=== PATIENT | female | born 1940 | race Caucasian/White ===

== ENCOUNTER 2019-07-27 18:04 | Outpatient (CLI) | payer MEDICARE, OTHER | END 2019-07-27 18:05 | disposition critical access hospital (66) | LOC: EMS 18:04 | PROVIDERS: ATTEND Surgery | DX: R51 Headache (principal); M54.2 Cervicalgia; M79.632 Pain in left forearm; M25.571 Pain in right ankle and joints of right foot; W18.31XA Fall on same level due to stepping on an object, initial encounter; Y92.009 Unspecified place in unspecified non-institutional (private) residence as the place of occurrence of the external cause | CPT/HCPCS: A0425; A0429 ==

== ENCOUNTER 2019-07-27 18:17 | Emergency (ER) | payer MEDICARE, OTHER ==
--- NOTE | 2019-07-27 18:39 | ED Physician Documentation ---
History of Present Illness - Stated complaint Stated Complaint: GLF, RT ANKLE PAIN, LT FACIAL/FOREARM PAIN - Chief complaint Chief Complaint: General - History obtained from History obtained from: Patient, EMS - History of Present Illness Timing: Today (She stepped in a hole and had a trip and fall forward hitting her face on the ground. She complains of a mild headache. No loss of consciousness or blood thinners. 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 : None HEENT: None Psych: None Musculoskeletal: None Derm: None - Past Surgical History Past Surgical History: No Ortho: Knee replacement - Present Medications Home Medications: Ambulatory Orders Medication Instructions Recorded Confirmed Aspirin 81 mg PO DAILY 07/27/19 07/27/19 Atorvastatin [Lipitor] 20 mg PO DAILY 07/27/19 07/27/19 Levothyroxine Sodium [Synthroid] 75 mg PO DAILY 07/27/19 07/27/19 Lisinopril [Prinivil] 5 mg PO DAILY 07/27/19 07/27/19 Lisinopril [Zestril] 5 mg PO DAILY 07/27/19 07/27/19 Metoprolol Succinate 12.5 mg PO BID 07/27/19 07/27/19 Pantoprazole [Protonix] 40 mg PO DAILY 07/27/19 07/27/19 amLODIPine [Norvasc] 2.5 mg PO DAILY 07/27/19 07/27/19 metFORMIN [Glucophage] 1,000 mg PO BIDWM 07/27/19 07/27/19 - Allergies Allergies/Adverse Reactions: Allergies Allergy/AdvReac Type Severity Reaction Status Date / Time No Known Drug Allergies Allergy Verified 07/27/19 18:22 - Social History Does the pt smoke?: No Smoking Status: Never smoker Does the pt drink ETOH?: No Does the pt have substance abuse?: No - Immunizations Immunizations are current?: Yes - POLST Patient has POLST: No PD ED PE NORMAL - Vitals Vital signs reviewed: Yes - General General: Alert and oriented X 3, No acute distress - HEENT HEENT: PERRL, EOMI, Other (There is a small abrasion inferior and lateral to the left eye, no facial bony tenderness) - Neck Neck: No bony TTP (But c-collar was maintained pending imaging given advanced age) - Respiratory Respiratory: Clear bilaterally - Abdomen Abdomen: Non tender - Back Back: No spinal TTP - Derm Derm: Normal color, Warm and dry - Extremities Extremities: No deformity, No tenderness to palpate, Normal ROM s pain, No edema, No calf tenderness / cord - Neuro Neuro: Alert and oriented X 3, Normal speech Results - Vitals Vitals: Vital Signs - 24 hr 07/27/19 07/27/19 18:23 19:36 Temperature 36.9 C 36.8 C Heart Rate 76 74 Respiratory 17 18 Rate Blood Pressure 152/69 H 157/69 H O2 Saturation 97 97 Oxygen O2 Source Room air - Labs Labs: Laboratory Tests 07/27/19 07/27/19 07/27/19 19:06 19:06 19:06 WBC 8.5 RBC 4.20 Hgb 11.8 L Hct 37.6 MCV 89.5 MCH 28.1 MCHC 31.4 L RDW 12.4 Plt Count 338 MPV 10.5 Neut # (Auto) 5.4 Lymph # (Auto) 2.1 [place] # (Auto) 0.6 Eos # (Auto) 0.4 Baso # (Auto) 0.1 Absolute Nucleated RBC 0.00 Nucleated RBC % 0.0 PT 10.6 INR 0.9 Sodium 137 Potassium 4.3 Chloride 100 L Carbon Dioxide 26 Anion Gap 11.0 BUN 24 H Creatinine 1.2 H Estimated GFR (MDRD) 43 L Glucose 187 H Calcium 9.5 Total Bilirubin 0.7 AST 21 ALT 18 Alkaline Phosphatase 37 L Total Protein 6.5 L Albumin 4.1 Globulin 2.4 Albumin/Globulin Ratio 1.7 Lipase 65 H Ethyl Alcohol < 5.0 - Rads (name of study) ct head Radiology: EMP read contemporaneously (Right sided holohemispheric subdural hematoma up to 1.3 cm, large meningioma, leftward midline shift of 8 mm) CT Cspine Radiology: EMP read contemporaneously (negative) PD MEDICAL DECISION MAKING - ED course ED course: 79-year-old woman with a ground-level fall, mechanical, little scrape under the left eye, neuro intact. Started vomiting after CT and I viewed the CTs immediately on return, she is got a large right-sided subdural, also large meningioma I think. [facility] was called and she was accepted by Dr. Manisha Porras to a higher level care at 7:20 PM and cobras were completed. Departure - Departure Disposition: 02 Transfer Acute Care Hosp Clinical Impression: Subdural hematoma, Fall from ground level Condition: Serious Discharge Date/Time: 07/27/19 19:52
[2019-07-27] MEDS ORDERED: ONDANSETRON 4 MG/2 ML VIAL IVP STA (19:06)
[2019-07-27 19:11] LABS: BASOPHILS # (AUTO) 0.1 10^3/uL (0.0-0.1); BASOPHILS % (AUTO) 0.8 %; EOSINOPHILS # (AUTO) 0.4 10^3/uL (0.0-0.7); EOSINOPHILS % (AUTO) 4.1 %; HGB - HEMOGLOBIN 11.8 g/dL (12.0-16.0); LYMPHOCYTES # (AUTO) 2.1 10^3/uL (1.5-3.5); LYMPHOCYTES % (AUTO) 24.6 %; MEAN CORPUSCULAR HEMOGLOBIN 28.1 pg (27.0-31.0); MEAN CORPUSCULAR HGB CONC 31.4 g/dL (32.0-36.0); MEAN CORPUSCULAR VOLUME 89.5 fL (81.0-99.0); MEAN PLATELET VOLUME 10.5 fL (7.9-10.8); MONOCYTES # (AUTO) 0.6 10^3/uL (0.0-1.0); MONOCYTES % (AUTO) 6.6 %; NEUTROPHILS # (AUTO) 5.4 10^3/uL (1.5-6.6); NEUTROPHILS % (AUTO) 63.5 %; PLT - PLATELET COUNT 338 10^3/uL (130-450); RED CELL DISTRIBUTION WIDTH 12.4 % (12.0-15.0); WHITE BLOOD COUNT 8.5 x10^3/uL (4.8-10.8)
[2019-07-27 19:15] LABS: INR 0.9 (0.8-1.2); PT - PROTHROMBIN TIME 10.6 secs (9.9-12.6)
[2019-07-27 19:23] LABS: ALBUMIN 4.1 g/dL (3.2-5.5); ALBUMIN/GLOBULIN RATIO 1.7 (1.0-2.2); ALKALINE PHOSPHATASE 37 IU/L (42-121); ALT ALANINE AMINOTRANSFERASE 18 IU/L (10-60); AST ASPARTATE AMINOTRANSFERASE 21 IU/L (10-42); BILIRUBIN,TOTAL 0.7 mg/dL (0.2-1.0); BUN - BLOOD UREA NITROGEN 24 mg/dL (6-20); CALCIUM 9.5 mg/dL (8.5-10.3); CARBON DIOXIDE - CO2 26 mmol/L (21-32); CHLORIDE 100 mmol/L (101-111); CREATININE 1.2 mg/dL (0.4-1.0); GFR - MDRD 43 (>89); GLUCOSE 187 mg/dL (70-100); LIPASE 65 U/L (22-51); SODIUM 137 mmol/L (135-145); TOTAL PROTEIN 6.5 g/dL (6.7-8.2)
--- NOTE | 2019-07-27 19:31 | CT Report ---
Reason: head inj Procedure Date: 07/27/2019 Accession Number: [id number] / [id number] Procedure: CT - CERVICAL SPINE WO CPT Code: Final Report FULL RESULT: EXAM: CT CERVICAL SPINE WITHOUT CONTRAST DATE: 07/27/2019 06:53 PM. HISTORY: Head inj. COMPARISONS: None. TECHNIQUE: Thin-section axial images were acquired of the cervical spine without contrast. Post-processing: Coronal and sagittal reformats. Other: None. In accordance with CT protocol optimization, one or more of the following dose reduction techniques were utilized for this exam: automated exposure control, adjustment of mA and/or KV based on patient size, or use of iterative reconstructive technique. FINDINGS: Alignment: No scoliosis or spondylolisthesis. Bones: No fracture or bone lesion. Musculature: Normal. No fatty atrophy. Other: The paravertebral and prevertebral soft tissues are unremarkable. The lung apices are clear. IMPRESSION: No acute displaced fracture or malalignment. [facility]
--- NOTE | 2019-07-27 19:33 | CT Report ---
Reason: head inj Procedure Date: 07/27/2019 Accession Number: [id number] / [id number] Procedure: CT - HEAD WO CPT Code: Addended Final Report FULL RESULT: EXAM: CT HEAD EXAM DATE: 07/27/2019 06:53 PM. CLINICAL HISTORY: Head inj. COMPARISON: CERVICAL SPINE W/O 07/27/2019 6:53 PM. TECHNIQUE: Multiaxial CT images were obtained from the foramen magnum to the vertex. Reformats: Sagittal and coronal. IV contrast: None. In accordance with CT protocol optimization, one or more of the following dose reduction techniques were utilized for this exam: automated exposure control, adjustment of mA and/or KV based on patient size, or use of iterative reconstructive technique. FINDINGS: Parenchyma: No evidence of parenchymal hemorrhage. There is right-sided mass-effect with leftward midline shift of approximately 0.8 cm at the level of the third ventricle. Extraaxial Spaces: There is right-sided holohemispheric subdural hematoma measuring up to 1.3 cm in thickness. There is a large calcified extra-axial mass along the right falx. This likely represents a meningioma. Ventricles: There is effacement of the right lateral ventricle. There is no evidence of ventricular entrapment. Basilar cisterns are patent. Sinuses and Orbits: No evidence of depressed skull fracture. Bones: No evidence of fracture or calvarial defect. Other: None. IMPRESSION: 1. Right-sided holohemispheric subdural hematoma measuring up to 1.3 cm in thickness. There is associated mass-effect with approximately 0.8 cm of leftward midline shift. There is partial effacement of the right lateral ventricle. Basilar cisterns are patent. 2. There is a calcified extra-axial mass measuring 3.1 x 2.8 cm along the right aspect of the falx. This may represent a meningioma. 3. No evidence of depressed skull fracture. [facility] ADDENDUM: 07/27/19 19:52 The above call report findings were discussed with Adrian Loya by Dr. Lisandro Reid at 07:02 PM on 07/27/2019.
[2019-07-27 19:37] VITALS: BP 157/69
== END 2019-07-27 19:52 | disposition short-term general hospital (02) ==
LOC: EDUNIT# → ED 18:17
DX: S06.5X0A Traumatic subdural hemorrhage without loss of consciousness, initial encounter (principal); S00.81XA Abrasion of other part of head, initial encounter; M25.571 Pain in right ankle and joints of right foot; M79.632 Pain in left forearm; W01.198A Fall on same level from slipping, tripping and stumbling with subsequent striking against other object, initial encounter; Y93.01 Activity, walking, marching and hiking; I10 Essential (primary) hypertension; E11.9 Type 2 diabetes mellitus without complications; Z79.84 Long term (current) use of oral hypoglycemic drugs; Z79.82 Long term (current) use of aspirin
CPT/HCPCS: 36415; 70450; 72125; 80053; 80320; 83690; 85025; 85610; 96374; 99284

== ENCOUNTER 2019-08-02 13:17 | Outpatient (CLI) | payer MEDICARE, OTHER | END 2019-08-02 13:18 | disposition critical access hospital (66) | LOC: EMS 13:17 | PROVIDERS: ATTEND Surgery | DX: R46.4 Slowness and poor responsiveness (principal); R53.1 Weakness; R29.810 Facial weakness; R47.81 Slurred speech | CPT/HCPCS: A0425; A0427 ==

== ENCOUNTER 2019-08-02 13:39 | Inpatient (IN) | payer MEDICARE, OTHER ==
--- NOTE | 2019-08-02 13:43 | ED Physician Documentation ---
PD HPI FOCAL NEURO - Stated complaint Stated Complaint: POSS STROKE - History obtained from History obtained from: EMS (This is an 79-year-old woman who I saw on [place], she had fallen and suffered a right sided subdural hemorrhage. She was transferred to [facility] where she had a craniectomy, intraoperatively the skull flap was replaced. She was doing well postop and released 2 days ago. Reportedly about 1245 today she became suddenly flaccid on the left side and nonverbal. The patient is pretty much nonverbal, she can kind of say yes or no. 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 : None HEENT: None Psych: None Musculoskeletal: None Derm: None - Past Surgical History Past Surgical History: No Ortho: Knee replacement - Present Medications Home Medications: Ambulatory Orders Medication Instructions Recorded Confirmed Aspirin 81 mg PO DAILY 07/27/19 07/27/19 Atorvastatin [Lipitor] 20 mg PO DAILY 07/27/19 07/27/19 Levothyroxine Sodium [Synthroid] 75 mg PO DAILY 07/27/19 07/27/19 Lisinopril [Prinivil] 5 mg PO DAILY 07/27/19 07/27/19 Lisinopril [Zestril] 5 mg PO DAILY 07/27/19 07/27/19 Metoprolol Succinate 12.5 mg PO BID 07/27/19 07/27/19 Pantoprazole [Protonix] 40 mg PO DAILY 07/27/19 07/27/19 amLODIPine [Norvasc] 2.5 mg PO DAILY 07/27/19 07/27/19 metFORMIN [Glucophage] 1,000 mg PO BIDWM 07/27/19 07/27/19 - Allergies Allergies/Adverse Reactions: Allergies Allergy/AdvReac Type Severity Reaction Status Date / Time No Known Drug Allergies Allergy Verified 08/02/19 14:08 - Social History Does the pt smoke?: No Smoking Status: Never smoker Does the pt drink ETOH?: No Does the pt have substance abuse?: No - Immunizations Immunizations are current?: Yes - POLST Patient has POLST: No PD ED PE NORMAL - Vitals Vital signs reviewed: Yes - General General: Other (He is alert and makes eye contact, she is pretty much nonverbal except for the occasional yes or shaking her head for no. She follows commands but is flaccid on the left side.) - HEENT HEENT: PERRL, Other (Right gaze preference, can look only a little bit to the left past midline; Significant left facial droop) - Neck Neck: Supple, no meningeal sign, No bony TTP - Cardiac Cardiac: RRR, No murmur - Respiratory Respiratory: No respiratory distress, Clear bilaterally - Abdomen Abdomen: Soft, Non tender - Back Back: No CVA TTP, No spinal TTP - Derm Derm: Normal color, Warm and dry - Neuro Neuro: Other (She is completely flaccid on the left side, although she does recognize the left hand is her only when I put it up in front of her face. She does not withdraw to painful stimulus nor does she react to painful stimulus in the left arm or leg.) NIHSS - Time Time: 13:40 - Level of Consciousness Level of consciousness: (0) Alert, Keenly responsive LOC Questions: (2) Answers neither correct LOC Commands: (0) Performs both correctly - Gaze Best Gaze: (1) Partial gaze palsy - Visual Visual: (0) No loss - Facial Palsy Facial Palsy: (3) Complete paralysis - Motor Arms (both separate) Motor Arm (right): (0) No drift Motor Arm (left): (4) No movement - Motor Legs (both separate) Motor Leg (right): (0) No drift Motor Leg (left): (4) No movement - Limb Ataxia Limb Ataxia: (0) Absent - Sensory Sensory: (2) [id number] loss - Best Language Best Language: (2) Severe aphasia - Dysarthria Dysarthria: (-) Intubated or other barrier, use comment - Extinction and Inattention (formally neg Extinction and inattention: (1) Visual,tactile,auditory,spatial, or personal inattention - Total Score/Results Total Score/Result: 19 Results - Vitals Vitals: Vital Signs - 24 hr 08/02/19 08/02/19 08/02/19 14:08 14:18 15:28 Temperature 37.0 C Heart Rate 88 104 H Respiratory 17 15 Rate Blood Pressure 165/72 H 165/70 H O2 Saturation 87 L 98 100 Oxygen O2 Source Nasal cannula Oxygen Flow Rate 2 - EKG (time done) 1413 Rate: Rate (enter#) (93) Rhythm: NSR (with PVCs) [place]: Normal Intervals: Normal VA QRS: Normal Ischemia: Normal ST segments Computer interpretation: Agree with computer - Labs Labs: Laboratory Tests 08/02/19 08/02/19 08/02/19 14:12 14:12 14:12 WBC 8.5 RBC 3.19 L Hgb 8.9 L Hct 29.1 L MCV 91.2 MCH 27.9 MCHC 30.6 L RDW 12.1 Plt Count 392 MPV 10.3 Neut # (Auto) 5.3 Lymph # (Auto) 2.0 [place] # (Auto) 0.7 Eos # (Auto) 0.4 Baso # (Auto) 0.0 Absolute Nucleated RBC 0.00 Nucleated RBC % 0.0 PT 11.5 INR 1.0 APTT 26.5 Sodium 132 L Potassium 3.8 Chloride 98 L Carbon Dioxide 20 L Anion Gap 14.0 H BUN 19 Creatinine 1.0 Estimated GFR (MDRD) 53 L Glucose 228 H Calcium 9.1 Total Bilirubin 0.6 AST 18 ALT 20 Alkaline Phosphatase 53 Total Protein 6.5 L Albumin 3.6 Globulin 2.9 Albumin/Globulin Ratio 1.2 Lipase 33 PD MEDICAL DECISION MAKING - ED course ED course: 79yo F with left hemiplegia 6 days after having a large right-sided subdural hematoma. She had a craniectomy, and her skull was replaced. She was taken immediately over to CT after my initial evaluation, which actually did not look too bad to my eye i.e. there was not much in the way of fresh blood products or acute-looking disease in there. We added on angiography to see if it might be an embolic phenomenon. Clearly she is not a TPA candidate just 6 days after a subdural hemorrhage. Of note reportedly this was preceded by some sort of seizure activity so it may be a Vicente's paralysis 2. On recheck at about 2:10 PM the family was in the room. She was now actually talking just a little bit. She was retching into a bag and I offered nausea medicine to which she replied thank you. Also reportedly was moving the left hand a little bit now. I spoke with Dr. Lewis Meza, stroke neurologist at [facility] ([phone]), she will call me back after reviewing the images primarily but agrees that this is likely a Vicente's paralysis and recommends loading her with 2 g of levetiracetam pending her review of the images. I spoke with her again at 1533 after she looked at the images. Subdural is unchanged from post-op CT. Continue levitiracetam at 750mg PO BID for now. Departure - Departure Disposition: ED Place in Observation Clinical Impression: Vicente's paralysis (postepileptic) Condition: Fair
--- NOTE | 2019-08-02 13:59 | CT Report ---
Reason: L side flaccid Procedure Date: 08/02/2019 Accession Number: [id number] / [id number] Procedure: CT - Head W/O Stroke Protocol CPT Code: Addended Final Report FULL RESULT: EXAM: CT HEAD EXAM DATE: 08/02/2019 01:48 PM. CLINICAL HISTORY: 79-year-old female. L side flaccid. COMPARISON: CT head 07/27/2019 TECHNIQUE: Multiaxial CT images were obtained from the foramen magnum to the vertex. Reformats: Sagittal and coronal. IV contrast: None. In accordance with CT protocol optimization, one or more of the following dose reduction techniques were utilized for this exam: automated exposure control, adjustment of mA and/or KV based on patient size, or use of iterative reconstructive technique. FINDINGS: Compared to prior study dated 07/27/2019, the patient is status post right frontal craniotomy for evacuation of the previously seen right holohemispheric subdural hemorrhage, with 9 mm thick layer of acute blood underlying the craniotomy site in the right frontal region still remaining (series 7 image 21), previously the maximal thickness was 13 mm. There has been interval decrease in intracranial mass-effect, the leftward midline shift has decreased from 11 mm to 5 mm. Slight interval improvement in size and configuration of the supratentorial ventricles. No evidence of hydrocephalus or trapping. Stable large calcified extra-axial mass along the right aspect of the falx, presumed meningioma. No CT evidence of interval increase in intracranial hemorrhage. No CT evidence of interval development of acute infarct. The visualized orbits are unremarkable. The paranasal sinuses and mastoid air cells are clear. IMPRESSION: 1. Compared to prior study dated 07/27/2019, the patient is status post right frontal craniotomy for evacuation of the previously seen right holohemispheric subdural hemorrhage, with 9 mm thick layer of acute extra-axial blood underlying the craniotomy site in the right frontal region still remaining (series 7 image 21), previously the maximal thickness was 13 mm. 2. There has been interval decrease in intracranial mass-effect, the leftward midline shift has decreased from 11 mm to 5 mm. 3. Slight interval improvement in size and configuration of the supratentorial ventricles. No evidence of hydrocephalus or trapping. 4. Stable large calcified extra-axial mass along the right aspect of the falx, presumed meningioma. 5. No CT evidence of interval increase in intracranial hemorrhage. No CT evidence of interval development of acute infarct. [facility] The critical test notification system was initiated by Dr. Jefferson Bowen at 01:56 PM on 08/02/2019. ADDENDUM: 08/02/19 14:01 The above critical test findings were discussed with Adrian Loya by Dr. Jefferson Bowen at 02:01 PM on 08/02/2019.
[2019-08-02] MEDS ORDERED: IOVERSOL 320 100 ML VIAL IVP ONE (14:07)
[2019-08-02] MEDS ORDERED: ONDANSETRON 4 MG/2 ML VIAL IVP STA (14:16)
[2019-08-02 14:18] LABS: BASOPHILS % (AUTO) 0.5 %; EOSINOPHILS # (AUTO) 0.4 10^3/uL (0.0-0.7); EOSINOPHILS % (AUTO) 4.4 %; HGB - HEMOGLOBIN 8.9 g/dL (12.0-16.0); LYMPHOCYTES % (AUTO) 24.1 %; MEAN CORPUSCULAR HEMOGLOBIN 27.9 pg (27.0-31.0); MEAN CORPUSCULAR HGB CONC 30.6 g/dL (32.0-36.0); MEAN CORPUSCULAR VOLUME 91.2 fL (81.0-99.0); MEAN PLATELET VOLUME 10.3 fL (7.9-10.8); MONOCYTES # (AUTO) 0.7 10^3/uL (0.0-1.0); MONOCYTES % (AUTO) 7.9 %; NEUTROPHILS # (AUTO) 5.3 10^3/uL (1.5-6.6); NEUTROPHILS % (AUTO) 62.7 %; PLT - PLATELET COUNT 392 10^3/uL (130-450); RED BLOOD COUNT 3.19 10^6/uL (4.20-5.40); RED CELL DISTRIBUTION WIDTH 12.1 % (12.0-15.0); WHITE BLOOD COUNT 8.5 x10^3/uL (4.8-10.8)
[2019-08-02 14:32] LABS: PT - PROTHROMBIN TIME 11.5 secs (9.9-12.6)
[2019-08-02 14:34] LABS: ALBUMIN 3.6 g/dL (3.2-5.5); ALBUMIN/GLOBULIN RATIO 1.2 (1.0-2.2); BILIRUBIN,TOTAL 0.6 mg/dL (0.2-1.0); CALCIUM 9.1 mg/dL (8.5-10.3); TOTAL PROTEIN 6.5 g/dL (6.7-8.2)
--- NOTE | 2019-08-02 14:35 | CT Report ---
Reason: L sided facial droop Procedure Date: 08/02/2019 Accession Number: [id number] / [id number] Procedure: CT - ANGIO HEAD W/WO CPT Code: Final Report FULL RESULT: EXAM: CT ANGIOGRAM HEAD AND NECK. CT SCAN HEAD WITH CONTRAST. EXAM DATE: 08/02/2019 01:58 PM. CLINICAL HISTORY: 79-year-old female. L sided facial droop. COMPARISON: Noncontrast CT head performed concurrently TECHNIQUE: Routine axial helical CTA imaging was performed from the aortic arch through the [place] of [place]. Routine axial CT imaging of the head was performed following contrast administration. Reconstructions: Routine multiplanar 3D MIP reconstructions. IV contrast: AP ML Optiray 320. NASCET Criteria are used for stenosis measurements. In accordance with CT protocol optimization, one or more of the following dose reduction techniques were utilized for this exam: automated exposure control, adjustment of mA and/or KV based on patient size, or use of iterative reconstructive technique. FINDINGS: CT SCAN HEAD: Noncontrast CT head dictated separately. No abnormal parenchymal enhancement on the postcontrast CT head. CT ANGIOGRAM EXTRACRANIAL CIRCULATION: The visualized arch is unremarkable. Great vessels are patent and unremarkable. Right Carotid: The common carotid, internal carotid, and external carotid arteries are widely patent. No dissection, significant atherosclerotic plaque, or calcification identified. Left Carotid: The common carotid, internal carotid, and external carotid arteries are widely patent. No dissection, significant atherosclerotic plaque, or calcification identified. Vertebrals: The vertebrobasilar system shows no stenosis, dissection, aneurysm, or significant atherosclerotic disease. CT ANGIOGRAM INTRACRANIAL CIRCULATION: RIGHT: Internal Carotid artery: No evidence of dissection. No evidence of aneurysm along the intracranial ICA. Anterior Cerebral Artery: Patent without significant stenosis, aneurysm, or vascular malformation. Middle Cerebral Artery: Patent without significant stenosis, aneurysm, or vascular malformation. Posterior Cerebral Artery: Nearly origin. Patent without significant stenosis, aneurysm, or vascular malformation. Posterior Communicating Artery: Patent without significant stenosis, aneurysm, or vascular malformation. LEFT: Internal Carotid artery: No evidence of dissection. No evidence of aneurysm along the intracranial ICA. Anterior Cerebral Artery: Patent without significant stenosis, aneurysm, or vascular malformation. Middle Cerebral Artery: Patent without significant stenosis, aneurysm, or vascular malformation. Posterior Cerebral Artery: Patent without significant stenosis, aneurysm, or vascular malformation. Posterior Communicating Artery: Patent without significant stenosis, aneurysm, or vascular malformation. CENTRAL: Anterior Communicating Artery: Patent. No aneurysm. The dural venous sinuses are patent. Other: The visualized lung apices are clear. The visualized osseous structures demonstrate no acute abnormality. The visualized soft tissues of the neck demonstrate no acute abnormality. IMPRESSION: CT HEAD: 1. Noncontrast CT head dictated separately. No abnormal parenchymal enhancement on the postcontrast CT head. CTA NECK: 1. No CTA evidence of hemodynamically significant stenosis, large vessel occlusion, acute dissection, aneurysm, or vascular malformation within extracranial arteries. CTA HEAD: 1. No CTA evidence of hemodynamically significant stenosis, large vessel occlusion, acute dissection, aneurysm, or vascular malformation within intracranial arteries. OTHER: 1. No other acute findings. RADIA
--- NOTE | 2019-08-02 14:35 | CT Report ---
Reason: L sided facial droop Procedure Date: 08/02/2019 Accession Number: [id number] / [id number] Procedure: CT - ANGIO NECK W CPT Code: Final Report FULL RESULT: EXAM: CT ANGIOGRAM HEAD AND NECK. CT SCAN HEAD WITH CONTRAST. EXAM DATE: 08/02/2019 01:58 PM. CLINICAL HISTORY: 79-year-old female. L sided facial droop. COMPARISON: Noncontrast CT head performed concurrently TECHNIQUE: Routine axial helical CTA imaging was performed from the aortic arch through the [place] of [place]. Routine axial CT imaging of the head was performed following contrast administration. Reconstructions: Routine multiplanar 3D MIP reconstructions. IV contrast: AP ML Optiray 320. NASCET Criteria are used for stenosis measurements. In accordance with CT protocol optimization, one or more of the following dose reduction techniques were utilized for this exam: automated exposure control, adjustment of mA and/or KV based on patient size, or use of iterative reconstructive technique. FINDINGS: CT SCAN HEAD: Noncontrast CT head dictated separately. No abnormal parenchymal enhancement on the postcontrast CT head. CT ANGIOGRAM EXTRACRANIAL CIRCULATION: The visualized arch is unremarkable. Great vessels are patent and unremarkable. Right Carotid: The common carotid, internal carotid, and external carotid arteries are widely patent. No dissection, significant atherosclerotic plaque, or calcification identified. Left Carotid: The common carotid, internal carotid, and external carotid arteries are widely patent. No dissection, significant atherosclerotic plaque, or calcification identified. Vertebrals: The vertebrobasilar system shows no stenosis, dissection, aneurysm, or significant atherosclerotic disease. CT ANGIOGRAM INTRACRANIAL CIRCULATION: RIGHT: Internal Carotid artery: No evidence of dissection. No evidence of aneurysm along the intracranial ICA. Anterior Cerebral Artery: Patent without significant stenosis, aneurysm, or vascular malformation. Middle Cerebral Artery: Patent without significant stenosis, aneurysm, or vascular malformation. Posterior Cerebral Artery: Nearly origin. Patent without significant stenosis, aneurysm, or vascular malformation. Posterior Communicating Artery: Patent without significant stenosis, aneurysm, or vascular malformation. LEFT: Internal Carotid artery: No evidence of dissection. No evidence of aneurysm along the intracranial ICA. Anterior Cerebral Artery: Patent without significant stenosis, aneurysm, or vascular malformation. Middle Cerebral Artery: Patent without significant stenosis, aneurysm, or vascular malformation. Posterior Cerebral Artery: Patent without significant stenosis, aneurysm, or vascular malformation. Posterior Communicating Artery: Patent without significant stenosis, aneurysm, or vascular malformation. CENTRAL: Anterior Communicating Artery: Patent. No aneurysm. The dural venous sinuses are patent. Other: The visualized lung apices are clear. The visualized osseous structures demonstrate no acute abnormality. The visualized soft tissues of the neck demonstrate no acute abnormality. IMPRESSION: CT HEAD: 1. Noncontrast CT head dictated separately. No abnormal parenchymal enhancement on the postcontrast CT head. CTA NECK: 1. No CTA evidence of hemodynamically significant stenosis, large vessel occlusion, acute dissection, aneurysm, or vascular malformation within extracranial arteries. CTA HEAD: 1. No CTA evidence of hemodynamically significant stenosis, large vessel occlusion, acute dissection, aneurysm, or vascular malformation within intracranial arteries. OTHER: 1. No other acute findings. [facility]IA
[2019-08-02 14:41] LABS: PARTIAL THROMBOPLASTIN TIME 26.5 secs (24.9-33.3)
[2019-08-02] MEDS ORDERED: levETIRAcetam INJ 2,000 MG in SODIUM CHLORIDE 0.9% 100ML 100 ML IV STA (15:05)
--- NOTE | 2019-08-02 15:44 | PHARMACY PROGRESS NOTE ---
- Best Possible Medication History Admit Date and Time: 08/02/19; PT STILL IN ED Processed by: Pharmacy Medication History completed: Yes Patient Interview: Pt unable to participate Secondary Source(s): Pharmacy records, Insurance records, Previous admit records As the person ultimately responsible for medication therapy, providers are able to order a medication from an existing home medication list in [facility] via the "Reconcile Routine" prior to Confirmation of that medication by landing support specialist. Such practice is discouraged except when the physician, in their clinical judgment, deems that a medical need exists for a medication without regard to previous use.
[2019-08-02] MEDS ORDERED: ACETAMINOPHEN 325 MG TABLET PO PRN (16:15)
[2019-08-02] MEDS ORDERED: ONDANSETRON 4 MG/2 ML VIAL IVP PRN (16:15)
[2019-08-02] MEDS ORDERED: SODIUM CHLORIDE FLUSH 0.9% 10 ML SYRINGE IVP PRN (16:15)
[2019-08-02 16:54] LABS: HB2 TOTAL 9.6 g/dL; HEMOGLOBIN A1C 0.55 g/dL; HEMOGLOBIN A1C % 7.4 % (4.6-6.2)
[2019-08-02] MEDS ORDERED: INSULIN ASPART 300 UNIT/3 ML PEN SUBQ SCH (17:00)
[2019-08-02] MEDS ORDERED: SODIUM CHLORIDE 0.9% 1,000 ML IV SCH (17:00)
--- NOTE | 2019-08-02 17:41 | HISTORY & PHYSICAL EXAMINATION ---
Chief Complaint - Chief Complaint Chief Complaint: focal neurological deficit History of Present Illness - History of Present Illness HPI Comment/Other: Ms. Ndiaye is an 79-year-old woman with a PMH significant for recent all which leaded to a right sided subdural hemorrhage, s/p of craniectomy, HTN, HLD, DM2 who present ER complain of suddenly flaccid on the left side and nonverbal. pt's son is at the bedside. he report pt released [facility]. she was doing well after postop,"she was almost normal" pt's son report about today lunch time she became left side weakness, and nonverbal. Upon examination, pt answer questions clearly and logically. pt's left hand can volunteer move now. but pt's left upper and lower extremity did present weakness. Pt still continue present un-volunteer and uncontrolled jerk activity. She denies headache and denies nausea now. pt's son report pt has no dysphagia. Pt had CT of head, CTA of head and neck. ER provider consulted with Dr. 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 History - Past Medical History Cardiovascular: reports: Hypertension, High cholesterol Respiratory: reports: None Neuro: reports: Head injury, Tremors Endocrine/Autoimmune: reports: Type 2 diabetes GI: reports: None MECHANIC HELPER: reports: None : reports: None HEENT: reports: None Psych: reports: None Musculoskeletal: reports: None Derm: reports: None MRSA Hx?: No - Past Surgical History Ortho: reports: Knee replacement Neuro: reports: Craniotomy - Family & Social History Family History: Mother: , Father: , Cancer Family History Comment/Other: pt's son report his grandfather from cancer, grandmother naturally. Living arrangement: At home Living Situation: With family Social History Notes: pt has remote of cigarette hx, pt has no hx of alcohol and drug issue. - POLST Patient has POLST: No Meds/Allgy - Home Medications Home Medications: Ambulatory Orders Medication Instructions Recorded Confirmed Aspirin 81 mg PO DAILY 07/27/19 08/02/19 Levothyroxine Sodium [Synthroid] 75 mcg PO QDAC 07/27/19 08/02/19 Pantoprazole [Protonix] 40 mg PO QDAC 07/27/19 08/02/19 Amlodipine Besylate [Norvasc] 2.5 mg PO DAILY 08/02/19 08/02/19 Atorvastatin Calcium 20 mg PO QPM 08/02/19 08/02/19 Ezetimibe 10 mg PO QPM 08/02/19 08/02/19 Metformin HCl 1,000 mg PO BID 08/02/19 08/02/19 Metoprolol Tartrate 12.5 mg PO BID 08/02/19 08/02/19 lisinopriL [Zestril] 5 mg PO DAILY 08/02/19 08/02/19 - Allergies Allergies/Adverse Reactions: Allergies Allergy/AdvReac Type Severity Reaction Status Date / Time No Known Drug Allergies Allergy Verified 08/02/19 14:08 Review of Systems - Constitutional Constitutional: denies: Fatigue, Fever, Chills - Eyes Eyes: denies: Pain - Ears, Nose & Throat Ears, Nose & Throat: denies: Ear pain, Nosebleeds - Cardiovascular Cariovascular: denies: Palpitations, Chest pain, Lightheadedness, Syncope, Exertional dyspnea, Decr. exercise tolerance - Respiratory Respiratory: denies: Cough, Sputum production, Wheezing, SOB at rest, SOB with exertion - Gastrointestinal Gastrointestinal: denies: Abdominal pain, Constipation, Diarrhea, Nausea, Vomiting - Genitourinary Genitourinary: denies: Dysuria - Musculoskeletal Musculoskeletal: denies: Muscle pain, Muscle aches - Integumentary Integumentary: denies: Rash - Neurological Neurological: reports: Focal weakness, Pre-existing deficit, Abnormal gait, Seizures, Incoordination. denies: Headache, Slurred speech - Psychiatric Psychiatric: denies: Suicidal, Delusions, Hallucinations, Homicidal - Endocrine Endocrine: denies: Polyuria - Hematologic/Lymphatic Hematologic/Lymphatic: denies: Anemia - All Other Systems All Other Systems: reports: Other (pt answered a few questions) Exam - Vital Signs Reviewed Vital Signs: Yes Vital Signs: Vital Signs x48h Temp Pulse Pulse Resp BP BP Pulse Ox 08/02/19 16:57 37.0 C 100 17 149/57 H 100 08/02/19 16:00 103 H 18 168/77 H 98 08/02/19 15:30 96 18 164/77 H 98 08/02/19 15:28 104 H 15 165/70 H 100 08/02/19 14:18 98 08/02/19 14:08 37.0 C 88 17 165/72 H 87 L - Physical Exam General Appearance: positive: No acute distress, Alert. negative: Lethargic Eyes Bilateral: positive: Normal inspection, PERRL, No lid inflammation ENT: positive: ENT inspection nml, Pharynx nml, No signs of dehydration. neg ative: Purulent nasal drainage Neck: positive: Nml inspection, Thyroid nml, No JVD, Trachea midline. negative: Thyromegaly, Lymphadenopathy (R), Lymphadenopathy (L), Stiff neck, Tracheal deviation Respiratory: positive: Chest non-tender, No respiratory distress, Breath sounds nml. negative: Wheezes, Rales, Rhonchi Cardiovascular: positive: No murmur, No gallop, Irregularly irregular, Extrasystoles. negative: Regular rate & rhythm, Tachycardia, Bradycardia, JVD present, Systolic murmur, Diastolic murmur Peripheral Pulses: positive: 2+ Abdomen: positive: Non-tender, No organomegaly, Nml bowel sounds, No distention. negative: Tenderness, Guarding, Rebound Back: positive: Nml inspection. negative: CVA tenderness (R), CVA tenderness (L) Skin: positive: Color nml, Warm, Dry. negative: Cyanosis, Diaphoresis, Pallor Extremities: positive: Non-tender. negative: Calf tenderness, Alex's sig n/cords Neurologic/Psychiatric: positive: Weakness, Sensory loss. negative: Facial droop, Slurred/abnml speech Sepsis Event Note (H) - Evaluation Current Stage of Sepsis: Ruled out Conclusion/Plan - Problem List (1) Vicente's paralysis (postepileptic) Conclusion/Plan: pt is s/p right frontal craniotomy for evacuation of subdural hemorrhage, thick of hematoma is reduced, and mass-effect decreased from today CT of head study, no CT evidence of interval development of acute infarct or intracranial hemorrhage. pt present left side weakness. neurologist in [facility] was consulted and think pt has Vicente's paralysis. pt was loaded her with 2 g of levetiracetam, continue levitiracetam at 750mg PO BID. pt was d/c three days from [facility]. continue home meds Aspirin, Lipitor, BP meds Neuro check, tele and vital monitor ST evaluation and treatment (2) Subdural hematoma Conclusion/Plan: s/p right frontal craniotomy for evacuation of subdural hemorrhage, thick of hematoma is reduced, and mass-effect decreased from today CT of head study, no CT evidence of interval development of acute infarct or intracranial hemorrhage. Neurologist was consulted. pt is on observation unit neuro check resume home BP meds PT/OT (3) Hx of fall Conclusion/Plan: pt has hx of fall, which lead to intracranial bleeding. fall precaution, continue PT/OT (4) HTN (hypertension) Conclusion/Plan: stable, resume home meds. vital monitor (5) HLD (hyperlipidemia) Conclusion/Plan: recheck lipid panel, resume home HLD meds (6) DM2 (diabetes mellitus, type 2) Conclusion/Plan: hold home Metformin start slide scale, ACHS, start hypoglycemia (7) Full code status Conclusion/Plan: pt's request full code for his mother - Lab Results Fish Bones: 08/02/19 14:12 08/02/19 14:12 Core Measures - Anticipated LOS I expect patient to be DC'd or transferred within 96 hours.: Yes - DVT/VTE - Prophylaxis VTE/DVT Device ordered at admit?: Yes VTE/DVT Prophylaxis med ordered at admit?: Yes
[2019-08-02] MEDS ORDERED: LORazepam 0.5 MG TABLET PO PRN (18:15)
[2019-08-02] MEDS ORDERED: LORazepam 2 MG/ML VIAL IVP PRN (18:16)
[2019-08-02] MEDS: SODIUM CHLORIDE 0.9% 1,000 ML IV SCH (18:33)
[2019-08-02] MEDS: METOPROLOL TARTRATE 25 MG TABLET PO SCH (18:45)
[2019-08-02] MEDS: SODIUM CHLORIDE FLUSH 0.9% 10 ML SYRINGE IVP SCH (18:46)
[2019-08-02] MEDS: INSULIN REGULAR HUMAN 300 UNIT/3 ML VIAL SUBQ SCH (19:27)
[2019-08-02] MEDS: ATORVASTATIN 10 MG TABLET PO SCH (22:01)
[2019-08-02] MEDS: levETIRAcetam 500 MG/5 ML UDC PO SCH (22:02)
[2019-08-02] MEDS: EZETIMIBE 10 MG TABLET PO SCH (22:04)
[2019-08-03] MEDS: INSULIN REGULAR HUMAN 300 UNIT/3 ML VIAL SUBQ SCH ×3 (00:13→12:11)
[2019-08-03] MEDS: SODIUM CHLORIDE FLUSH 0.9% 10 ML SYRINGE IVP SCH ×3 (00:15→17:47)
[2019-08-03] MEDS: SODIUM CHLORIDE 0.9% 1,000 ML IV SCH (04:12)
[2019-08-03 06:16] LABS: MAGNESIUM 1.6 mg/dL (1.7-2.8)
[2019-08-03 06:23] LABS: CHOL/HDL RATIO 3.9 (<4.4); CHOLESTEROL 130 mg/dL; HDL CHOLESTEROL 33 mg/dL; LDL CHOLESTEROL,CALCULATED 59 mg/dL; LDL/HDL RATIO 1.8 (<4.4); VLDL CHOLESTEROL 38 mg/dL
[2019-08-03 06:44] LABS: BASOPHILS % (AUTO) 0.5 %; EOSINOPHILS # (AUTO) 0.2 10^3/uL (0.0-0.7); EOSINOPHILS % (AUTO) 2.1 %; HGB - HEMOGLOBIN 8.1 g/dL (12.0-16.0); LYMPHOCYTES # (AUTO) 1.4 10^3/uL (1.5-3.5); LYMPHOCYTES % (AUTO) 17.9 %; MEAN CORPUSCULAR HEMOGLOBIN 28.5 pg (27.0-31.0); MEAN CORPUSCULAR HGB CONC 31.9 g/dL (32.0-36.0); MEAN CORPUSCULAR VOLUME 89.4 fL (81.0-99.0); MEAN PLATELET VOLUME 10.8 fL (7.9-10.8); MONOCYTES # (AUTO) 0.7 10^3/uL (0.0-1.0); MONOCYTES % (AUTO) 9.1 %; NEUTROPHILS # (AUTO) 5.6 10^3/uL (1.5-6.6); NEUTROPHILS % (AUTO) 69.8 %; PLT - PLATELET COUNT 459 10^3/uL (130-450); RED BLOOD COUNT 2.84 10^6/uL (4.20-5.40); RED CELL DISTRIBUTION WIDTH 12.3 % (12.0-15.0)
[2019-08-03] MEDS ORDERED: LEVOTHYROXINE 75 MCG TABLET PO SCH (07:00)
[2019-08-03] MEDS ORDERED: SODIUM CHLORIDE 0.9% 1,000 ML IV SCH (08:27)
[2019-08-03] MEDS ORDERED: FAMOTIDINE 20 MG TABLET PO SCH (09:00)
[2019-08-03] MEDS ORDERED: lisinopriL 5 MG TABLET PO SCH (09:00)
[2019-08-03] MEDS ORDERED: ASPIRIN CHEW 81 MG TABLET PO SCH (09:00)
[2019-08-03] MEDS: ENOXAPARIN 40 MG/0.4 ML SYRINGE SUBQ SCH (09:57)
[2019-08-03] MEDS: lisinopriL 5 MG TABLET PO SCH (09:57)
[2019-08-03] MEDS: levETIRAcetam 500 MG/5 ML UDC PO SCH ×2 (09:57→20:42)
[2019-08-03] MEDS: amLODIPine 5 MG TABLET PO SCH (09:58)
[2019-08-03] MEDS: METOPROLOL TARTRATE 25 MG TABLET PO SCH ×2 (09:58→20:41)
[2019-08-03] MEDS ORDERED: BACLOFEN 10 MG TABLET PO SCH (10:00)
--- NOTE | 2019-08-03 10:33 | XRAY Report ---
Reason: fever, SOB Procedure Date: 08/03/2019 Accession Number: [id number] / [id number] Procedure: XR - Chest 1 View X-Ray CPT Code: 00435 Final Report FULL RESULT: EXAM: CHEST RADIOGRAPHY EXAM DATE: 08/03/2019 08:47 AM. CLINICAL HISTORY: Fever, SOB. COMPARISON: None. TECHNIQUE: 1 view. FINDINGS: Lungs/Pleura: Patchy opacity at the left costophrenic angle. No pleural effusion. No pneumothorax. Mediastinum: Within exam limitations, the cardiomediastinal contour is normal. Other: None. IMPRESSION: Left basilar atelectasis and/or developing infiltrate. RADIA
[2019-08-03 10:53] LABS: BILIRUBIN,URINE NEGATIVE (NEGATIVE); GLUCOSE, URINE (UA) NEGATIVE (NEGATIVE); KETONES,URINE (UA) TRACE mg/dL (NEGATIVE); LEUKOCYTE ESTERASE, URINE TRACE (NEGATIVE); NITRITE,URINE NEGATIVE (NEGATIVE); OCCULT BLOOD,URINE TRACE-INTA (NEGATIVE); PROTEIN,URINE NEGATIVE (NEGATIVE); UROBILINOGEN,URINE 0.2 (NORMAL) E.U./dL (NORMAL)
[2019-08-03] MEDS ORDERED: cefTRIAXone 1 GM in SODIUM CHLORIDE 0.9% MINIBAG 100 ML IV SCH (11:00)
[2019-08-03 11:07] LABS: CLARITY,URINE CLEAR (CLEAR); RBC,URINE 0-5 /HPF (0-5)
[2019-08-03 11:08] LABS: BACTERIA,URINE None Seen /HPF (None Seen); SQUAMOUS EPITHELIAL CELL,UR FEW Squamous (<= Few)
[2019-08-03 11:35] LABS: ABSOLUTE RETICS # AUTO 0.106 10^6/uL (0.020-0.110); RED BLOOD COUNT 2.82 10^6/uL (4.20-5.40)
[2019-08-03 11:42] LABS: % IRON SATURATION 11 % (20-50); IRON 33 ug/dL (28-170); TOTAL IRON BINDING CAPACITY 295 ug/dL (250-450); TRANSFERRIN 211 mg/dL (192-382)
[2019-08-03 11:51] LABS: FERRITIN 42.5 ng/mL (11.0-306.8)
[2019-08-03] MEDS ORDERED: AZITHROMYCIN INJ 500 MG in SODIUM CHLORIDE 0.9% 250 ML IV SCH (12:00)
--- NOTE | 2019-08-03 16:30 | PROVIDER PROGRESS NOTE ---
Assessment/Plan - Problem List (1) Vicente's paralysis (postepileptic) Assessment/Plan: 08/03/2019 pt still present left side paralysis today. order MRI of brain and ECHO study continue PT/OT continue home meds Aspirin, Lipitor, BP meds Neuro check, tele and vital monitor ST evaluation and treatment is pending pt is s/p right frontal craniotomy for evacuation of subdural hemorrhage, thick of hematoma is reduced, and mass-effect decreased from today CT of head study, no CT evidence of interval development of acute infarct or intracranial hemorrhage. pt present left side weakness. neurologist in [facility] was consulted and think pt has Vicente's paralysis. pt was loaded her with 2 g of levetiracetam, continue levitiracetam at 750mg PO BID. pt was d/c three days from [facility]. continue home meds Aspirin, Lipitor, BP meds Neuro check, tele and vital monitor ST evaluation and treatment (2)pneumonia 08/03 pt present cough, lower degree fever, CXR indicate infiltrate. pt did not present neck stiffness. pt denies headache. pt's kernig sign in the examination is negative start on antibiotic HCAP, start with incentive-spirometer blood culture IVF (3) Subdural hematoma Conclusion/Plan: 08/03 pt denies headache but still present left paralysis, order MRI of brain, will followup s/p right frontal craniotomy for evacuation of subdural hemorrhage, thick of hematoma is reduced, and mass-effect decreased from today CT of head study, no CT evidence of interval development of acute infarct or intracranial hemorrhage. Neurologist was consulted. pt is on observation unit neuro check resume home BP meds PT/OT (4) Hx of fall Conclusion/Plan: pt has hx of fall, which lead to intracranial bleeding. fall precaution, continue PT/OT (5) HTN (hypertension) Conclusion/Plan: stable, resume home meds. vital monitor (6) HLD (hyperlipidemia) Conclusion/Plan: recheck lipid panel, resume home HLD meds (7) DM2 (diabetes mellitus, type 2) Conclusion/Plan: hold home Metformin start slide scale, ACHS, start hypoglycemia (8) Full code status Conclusion/Plan: pt's request full code for his mother - Current Meds Current Meds: Current Medications Generic Name Dose Route Start Last Admin Trade Name Freq PRN Reason Stop Dose Admin Acetaminophen 650 mg 08/02/19 16:15 08/03/19 02:44 Tylenol PO 650 mg Q4HR PRN Administration Pain 1 to 4 Amlodipine Besylate 2.5 mg 08/03/19 09:00 08/03/19 09:58 Norvasc PO 2.5 mg DAILY MARLEEN Administration Aspirin 81 mg 08/03/19 09:00 08/03/19 09:57 [facility] Tom Aspirin PO 81 mg DAILY MARLEEN Administration Atorvastatin Calcium 20 mg 08/02/19 21:00 08/02/19 22:01 Lipitor PO 20 mg QPM MARLEEN Administration Ezetimibe 10 mg 08/02/19 21:00 08/02/19 22:04 Zetia PO 10 mg QPM MARLEEN Administration Enoxaparin Sodium 40 mg 08/03/19 09:00 08/03/19 09:57 Lovenox SUBQ 40 mg DAILY MARLEEN Administration Famotidine 20 mg 08/03/19 09:00 08/03/19 09:57 Pepcid PO 20 mg DAILY MARLEEN Administration Sodium Chloride 1,000 mls @ 75 mls/hr 08/03/19 08:27 08/03/19 09:56 Normal Saline 0.9% IV 08/04/19 11:06 75 mls/hr .[id number] MARLEEN Administration Azithromycin 500 mg/ Sodium 250 mls @ 250 mls/hr 08/03/19 12:00 08/03/19 14:21 Chloride IV Infused Q24H [facility] Infusion Ceftriaxone Sodium 1 gm/ 100 mls @ 200 mls/hr 08/03/19 11:00 08/03/19 12:57 Sodium Chloride IV Infused Q24H [facility] Infusion Insulin Human Regular 1 - 9 unit 08/02/19 19:00 08/03/19 12:11 Humulin R SUBQ 1 unit Q6HR MARLEEN Administration Protocol Levetiracetam 750 mg 08/02/19 21:00 08/03/19 09:57 Keppra PO 750 mg BID MARLEEN Administration Lisinopril 5 mg 08/03/19 09:00 08/03/19 09:57 Zestril PO 5 mg DAILY MARLE[facility] Administration Lorazepam 0.5 mg 08/02/19 18:15 08/03/19 02:44 Ativan PO 0.5 mg Q6H PRN Administration Anxiety Metoprolol Tartrate 12.5 mg 08/02/19 18:00 08/03/19 09:58 Lopressor PO 12.5 mg BID MARLEEN Administration Sodium Chloride 10 ml 08/02/19 16:15 08/02/19 18:34 Normal Saline Flush 0.9% IVP 10 ml PRN PRN Administration NEEDED PER PROVIDER ORDERS Sodium Chloride 10 ml 08/02/19 17:00 08/03/19 09:58 Normal Saline Flush 0.9% IVP 10 ml 0100,0900,1700 MARLEEN Administration - Lab Result Fish Bone Diagrams: 08/04/19 05:20 08/04/19 05:20 - Additional Planning My Orders: My Active Orders 08/03/19 08:27 Sodium Chloride 0.9% [Normal Saline 0.9%] 1,000 ml IV 75 mls/hr 08/03/19 08:28 Incentive Spirometry - RT [RC] .TID 08/03/19 09:00 Aspirin Chewable [St Tom Aspirin] 81 mg PO DAILY Enoxaparin [Lovenox] 40 mg SUBQ DAILY Famotidine [Pepcid] 20 mg PO DAILY amLODIPine [Norvasc] 2.5 mg PO DAILY lisinopriL [Zestril] 5 mg PO DAILY 08/03/19 09:24 Echo Transthoracic Complete [ECHO] Routine 08/03/19 09:54 CUL, URINE [RM] Urgent 08/03/19 11:00 cefTRIAXone [Rocephin] 1 gm Sodium Chloride 0.9% Minibag [Normal Saline 0.9% Minibag] 100 ml IV Q24H 08/03/19 11:25 Blood Culture [CULTURE, BLOOD #1] [RM] Stat 08/03/19 11:33 Blood Culture [CULTURE, BLOOD #2] [RM] Stat 08/03/19 12:00 Azithromycin Inj [Zithromax Inj] 500 mg Sodium Chloride 0.9% [Normal Saline 0.9%] 250 ml IV Q24H 08/03/19 17:00 Saccharomyces Boulardii [Florastor] 250 mg PO BIDWM 08/03/19 Lunch Dysphagia Puree Diet [DIET] 08/04/19 05:00 BMP - BASIC METABOLIC PANEL [CHEM] DAILYLAB CBC - COMP BLD CT W/AUTO DIFF [HEME] DAILYLAB 08/04/19 09:19 BRAIN WO [MRI] Stat 08/05/19 05:00 BMP - BASIC METABOLIC PANEL [CHEM] DAILYLAB CBC - COMP BLD CT W/AUTO DIFF [HEME] DAILYLAB 08/06/19 05:00 BMP - BASIC METABOLIC PANEL [CHEM] DAILYLAB CBC - COMP BLD CT W/AUTO DIFF [HEME] DAILYLAB 08/02/19 16:15 Activity Orders [RC] Q2HR IO [RC] IOSHIFT Initiate Bowel Care Protocol [RC] .protocol Initiate Flu Vaccine Screening [RC] ONCE Initiate Line Care Protocol [RC] QSHIFT Initiate Personal Care Protoco [RC] .protocol Initiate Pneumonia Vaccine Scr [RC] ONCE Oxygen Therapy [RC] Routine Telemetry- [RC] Q4HR Vital Signs [RC] Q4HR Acetaminophen [Tylenol] 650 mg PO Q4HR PRN Ondansetron Inj [Zofran Inj] 4 mg IVP Q6HR PRN Sodium Chloride Flush 0.9% [Normal Saline Flush 0.9%] 10 ml IVP PRN PRN Code Status [OTHERS] Routine Condition of Patient [OTHERS] Routine DVT Prophylaxis [OTHERS] Routine 08/02/19 16:18 IV Insert [RC] .ONCE SCDs [RC] QSHIFT 08/02/19 16:19 Neuro Check [RC] Q4H 08/02/19 16:23 Blood Glucose Checks - Eating [RC] Q6HR Initiate Hypoglycemia Protocol [RC] .protocol 08/02/19 17:00 Sodium Chloride Flush 0.9% [Normal Saline Flush 0.9%] 10 ml IVP 0100,0900,1700 08/02/19 18:00 Metoprolol Tartrate [Lopressor] 12.5 mg PO BID 08/02/19 18:15 LORazepam [Ativan] 0.5 mg PO Q6H PRN 08/02/19 18:16 LORazepam INJ [Ativan Inj (Vial)] 2 mg IVP Q2H PRN 08/02/19 19:00 Insulin Regular Human [Humulin R] 1 - 9 unit SUBQ Q6HR 08/02/19 21:00 Atorvastatin [Lipitor] 20 mg PO QPM Ezetimibe [Zetia] 10 mg PO QPM levETIRAcetam [Keppra] 750 mg PO BID Subjective - Subjective Patient Reports: Cough Objective Vital Signs: Vital Signs - 24 hr 08/02/19 08/02/19 08/02/19 16:57 18:45 19:44 Temperature 37.0 C 37.5 C Heart Rate [ Activity] Heart Rate [ 100 97 Brachial] Heart Rate [ Supine] Respiratory 17 18 Rate Blood Pressure 141/76 H Blood Pressure [Activity] Blood Pressure [Left Brachial artery] Blood Pressure 149/57 H 148/73 H [Right Brachial artery] Blood Pressure [Supine] O2 Saturation 100 100 O2 Saturation [ Activity] O2 Saturation [ Supine] 08/02/19 08/03/19 08/03/19 23:55 02:08 05:00 Temperature 37.8 C H 37.6 C H 37.6 C H Heart Rate [ Activity] Heart Rate [ 102 H 96 Brachial] Heart Rate [ Supine] Respiratory 18 16 Rate Blood Pressure Blood Pressure [Activity] Blood Pressure 138/64 H [Left Brachial artery] Blood Pressure 151/60 H [Right Brachial artery] Blood Pressure [Supine] O2 Saturation 100 99 O2 Saturation [ Activity] O2 Saturation [ Supine] 08/03/19 08/03/19 08/03/19 08:51 09:58 10:40 Temperature 37.2 C Heart Rate [ 81 Activity] Heart Rate [ 91 Brachial] Heart Rate [ 73 Supine] Respiratory 16 Rate Blood Pressure 144/65 H Blood Pressure 139/60 H [Activity] Blood Pressure 144/63 H [Left Brachial artery] Blood Pressure [Right Brachial artery] Blood Pressure 143/53 H [Supine] O2 Saturation 99 O2 Saturation [ Activity] O2 Saturation [ Supine] 08/03/19 08/03/19 08/03/19 10:44 11:40 16:02 Temperature 37.6 C H 38.0 C H Heart Rate [ 81 Activity] Heart Rate [ 95 87 Brachial] Heart Rate [ 73 Supine] Respiratory 18 16 Rate Blood Pressure Blood Pressure 139/60 H [Activity] Blood Pressure 156/62 H 139/54 H [Left Brachial artery] Blood Pressure [Right Brachial artery] Blood Pressure 143/53 H [Supine] O2 Saturation 93 96 O2 Saturation [ 98 Activity] O2 Saturation [ 98 Supine] Oxygen O2 Source Room air Oxygen Flow Rate 2 I&O (Last 24 Hrs): Intake and Output Totals x24h 08/01/19 08/02/19 08/03/19 23:59 23:59 23:59 Intake Total 120 1888 Output Total 1800 1550 Balance -1680 338 General: Alert, No acute distress HEENT: Atraumatic Neck: Supple Lymphatic: no adenopathy Neuro: Alert, Focal Deficits Cardiovascular: Regular rate, Normal S1, Normal S2 Respiratory: Chest non-tender, No respiratory distress Abdomen: Normal bowel sounds, Soft Extremities: No edema, Normal pulses - Results Results: Laboratory Results WBC 8.0 x10^3/uL (4.8-10.8) 08/03/19 05:40 RBC 2.82 10^6/uL (4.20-5.40) L 08/03/19 05:40 Hgb 8.1 g/dL (12.0-16.0) L 08/03/19 05:40 Hct 25.4 % (37.0-47.0) L 08/03/19 05:40 MCV 89.4 fL (81.0-99.0) 08/03/19 05:40 MCH 28.5 pg (27.0-31.0) 08/03/19 05:40 MCHC 31.9 g/dL (32.0-36.0) L 08/03/19 05:40 RDW 12.3 % (12.0-15.0) 08/03/19 05:40 Plt Count 459 10^3/uL (130-450) H 08/03/19 05:40 MPV 10.8 fL (7.9-10.8) 08/03/19 05:40 Reticulocyte % (Auto) 3.77 % (0.5-2.3) H 08/03/19 05:40 Neut # (Auto) 5.6 10^3/uL (1.5-6.6) 08/03/19 05:40 Lymph # (Auto) 1.4 10^3/uL (1.5-3.5) L 08/03/19 05:40 [place] # (Auto) 0.7 10^3/uL (0.0-1.0) 08/03/19 05:40 Eos # (Auto) 0.2 10^3/uL (0.0-0.7) 08/03/19 05:40 Baso # (Auto) 0.0 10^3/uL (0.0-0.1) 08/03/19 05:40 Absolute Nucleated RBC 0.00 x10^3/uL 08/03/19 05:40 Nucleated RBC % 0.0 /100WBC 08/03/19 05:40 Absolute Retic 0.106 10^6/uL (0.020-0.110) 08/03/19 05:40 PT 11.5 secs (9.9-12.6) 08/02/19 14:12 INR 1.0 (0.8-1.2) 08/02/19 14:12 APTT 26.5 secs (24.9-33.3) 08/02/19 14:12 Sodium 138 mmol/L (135-145) 08/03/19 05:40 Potassium 3.6 mmol/L (3.5-5.0) 08/03/19 05:40 Chloride 104 mmol/L (101-111) 08/03/19 05:40 Carbon Dioxide 24 mmol/L (21-32) 08/03/19 05:40 Anion Gap 10.0 (6-13) 08/03/19 05:40 BUN 12 mg/dL (6-20) 08/03/19 05:40 Creatinine 1.0 mg/dL (0.4-1.0) 08/03/19 05:40 Estimated GFR (MDRD) 53 (>89) L 08/03/19 05:40 Glucose 175 mg/dL (70-100) H 08/03/19 05:40 Glycated Hemoglobin 7.4 % (4.6-6.2) H 08/02/19 14:12 Estim Average Glucose 166 (70-100) H 08/02/19 14:12 Calcium 9.0 mg/dL (8.5-10.3) 08/03/19 05:40 Magnesium 1.6 mg/dL (1.7-2.8) L 08/03/19 05:40 Iron 33 ug/dL (28-170) 08/03/19 05:40 TIBC 295 ug/dL (250-450) 08/03/19 05:40 % Saturation 11 % (20-50) L 08/03/19 05:40 Transferrin 211 mg/dL (192-382) 08/03/19 05:40 Ferritin 42.5 ng/mL (11.0-306.8) 08/03/19 05:40 Total Bilirubin 0.6 mg/dL (0.2-1.0) 08/02/19 14:12 AST 18 IU/L (10-42) 08/02/19 14:12 ALT 20 IU/L (10-60) 08/02/19 14:12 Alkaline Phosphatase 53 IU/L (42-121) 08/02/19 14:12 Lactate Dehydrogenase 120 IU/L (91-225) 08/03/19 05:40 Total Protein 6.5 g/dL (6.7-8.2) L 08/02/19 14:12 Albumin 3.6 g/dL (3.2-5.5) 08/02/19 14:12 Globulin 2.9 g/dL (2.1-4.2) 08/02/19 14:12 Albumin/Globulin Ratio 1.2 (1.0-2.2) 08/02/19 14:12 Triglycerides 192 mg/dL (-149) H 08/03/19 05:40 Cholesterol 130 mg/dL (-199) 08/03/19 05:40 LDL Cholesterol, Calc 59 mg/dL (-129) 08/03/19 05:40 VLDL Cholesterol 38 mg/dL 08/03/19 05:40 HDL Cholesterol 33 mg/dL (60-) L 08/03/19 05:40 LDL/HDL Ratio 1.8 (<4.4) 08/03/19 05:40 Cholesterol/HDL Ratio 3.9 (<4.4) 08/03/19 05:40 Lipase 33 U/L (22-51) 08/02/19 14:12 Vitamin B12 84 pg/mL (180-914) L 08/03/19 05:40 TSH 0.25 uIU/mL (0.34-5.60) L 08/03/19 05:40 Urine Color YELLOW 08/03/19 09:54 Urine Clarity CLEAR (CLEAR) 08/03/19 09:54 Urine pH 6.0 PH (5.0-7.5) 08/03/19 09:54 Ur Specific [place] 1.020 (1.002-1.030) 08/03/19 09:54 Urine Protein NEGATIVE mg/dL (NEGATIVE) 08/03/19 09:54 Urine Glucose (UA) NEGATIVE mg/dL (NEGATIVE) 08/03/19 09:54 Urine Ketones TRACE mg/dL (NEGATIVE) 08/03/19 09:54 Urine Occult Blood TRACE-INTA (NEGATIVE) 08/03/19 09:54 Urine Nitrite NEGATIVE (NEGATIVE) 08/03/19 09:54 Urine Bilirubin NEGATIVE (NEGATIVE) 08/03/19 09:54 Urine Urobilinogen 0.2 (NORMAL) E.U./dL (NORMAL) 08/03/19 09:54 Ur Leukocyte Esterase TRACE (NEGATIVE) H 08/03/19 09:54 Urine RBC 0-5 /HPF (0-5) 08/03/19 09:54 Urine WBC 4-5 /HPF (0-5) 08/03/19 09:54 Ur Squamous Epith Cells FEW Squamous (<= Few) 08/03/19 09:54 Urine Bacteria None Seen /HPF (None Seen) 08/03/19 09:54 Urine Culture Comments INDICATED 08/03/19 09:54 ABX Reporting Has patient been on IV antibiotics over the past 48 hours?: Yes Current Medications - Current Medications Current Medications: Active Medications Aspirin () 81 mg AR DAILY [facility] Last Admin: 08/04/19 09:56 Dose: 81 mg Enoxaparin Sodium (Lovenox) 40 mg SUBQ DAILY [facility] Last Admin: 08/04/19 09:25 Dose: 40 mg Famotidine (Pepcid) 10 mg IVP BID [facility] Hydralazine HCl (Apresoline Inj) 10 mg IVP QID PRN PRN Reason: Hypertensive Emergency Cefepime HCl 1 gm/ Sodium (Chloride) 100 mls @ 200 mls/hr IV TID [facility] Last Infusion: 08/04/19 06:23 Dose: Infused Vancomycin HCl 0.75 gm/ Sodium (Chloride) 250 mls @ 250 mls/hr IV Q18H [facility] Last Infusion: 08/03/19 21:34 Dose: Infused Acetaminophen (Ofirmev) 100 mls @ 400 mls/hr IV Q6HR PRN PRN Reason: PAIN Levetiracetam 500 mg/ Sodium (Chloride) 105 mls @ 400 mls/hr IV BID [facility] Last Infusion: 08/04/19 09:54 Dose: Infused Potassium Chloride/Dextrose/Sod Cl () 1,000 mls @ 60 mls/hr IV .[id number] [facility] Phenytoin Sodium 1,250 mg/ (Sodium Chloride) 125 mls @ 120 mls/hr IV ONCE ONE Stop: 08/04/19 12:02 Insulin Aspart (Novolog) 1 - 9 unit SUBQ Q6H [facility]; Protocol Last Admin: 08/04/19 05:55 Dose: 1 unit Metoprolol Tartrate (Lopressor Inj) 5 mg IVP Q6H PRN PRN Reason: Tachycardia Ondansetron HCl (Zofran Inj) 4 mg IVP Q6HR PRN PRN Reason: Nausea / Vomiting Phenytoin Sodium (Dilantin Inj) 100 mg IVP TID [facility] Sodium Chloride (Normal Saline Flush 0.9%) 10 ml IVP 0100,0900,1700 [facility] Sodium Chloride (Normal Saline Flush 0.9%) 10 ml IVP PRN PRN PRN Reason: NEEDED PER PROVIDER ORDERS Aspirin 81 mg PO DAILY 07/27/19 Levothyroxine Sodium [Synthroid] 75 mcg PO QDAC 07/27/19 Pantoprazole [Protonix] 40 mg PO QDAC 07/27/19 Amlodipine Besylate [Norvasc] 2.5 mg PO DAILY 08/02/19 Atorvastatin Calcium 20 mg PO QPM 08/02/19 Ezetimibe 10 mg PO QPM 08/02/19 Metformin HCl 1,000 mg PO BID 08/02/19 Metoprolol Tartrate 12.5 mg PO BID 08/02/19 lisinopriL [Zestril] 5 mg PO DAILY 08/02/19
[2019-08-03] MEDS: SACCHAROMYCES BOULARDII 250 MG CAPSULE PO SCH (16:46)
[2019-08-03] MEDS ORDERED: VANCOMYCIN PER PHARMACY 1 GM in SODIUM CHLORIDE 0.9% 250 ML IV SCH (17:00)
[2019-08-03] MEDS: CEFEPIME 1 GM in SODIUM CHLORIDE 0.9% MINIBAG 100 ML IV SCH ×2 (17:44→21:59)
[2019-08-03] MEDS: INSULIN ASPART 300 UNIT/3 ML PEN SUBQ SCH ×2 (17:46→21:34)
[2019-08-03] MEDS ORDERED: VANCOMYCIN INJ 1 GM in SODIUM CHLORIDE 0.9% 250 ML IV SCH (18:00)
[2019-08-03] MEDS ORDERED: VANCOMYCIN INJ 0.75 GM in SODIUM CHLORIDE 0.9% 250 ML IV SCH (18:00)
[2019-08-03] MEDS: ATORVASTATIN 10 MG TABLET PO SCH (20:41)
[2019-08-03] MEDS: EZETIMIBE 10 MG TABLET PO SCH (20:41)
[2019-08-03] MEDS ORDERED: levETIRAcetam INJ 750 MG in SODIUM CHLORIDE 0.9% 100ML 100 ML IV STA (21:08)
[2019-08-04] MEDS: SODIUM CHLORIDE FLUSH 0.9% 10 ML SYRINGE IVP SCH ×2 (01:01→09:26)
[2019-08-04] MEDS ORDERED: ACETAMINOPHEN 1,000 MG/100 ML 100 ML IV PRN (01:49)
[2019-08-04] MEDS ORDERED: PHENYTOIN INJ 1,000 MG in SODIUM CHLORIDE 0.9% 100ML 100 ML IV ONE (03:11)
[2019-08-04] MEDS ORDERED: VALPROATE IV STA (03:22)
[2019-08-04] MEDS ORDERED: SODIUM CHLORIDE 0.9% IV STA (03:22)
[2019-08-04] MEDS ORDERED: VALPROATE INJ 500 MG in SODIUM CHLORIDE 0.9% 100ML 100 ML IV STA (03:27)
[2019-08-04] MEDS: LORazepam 2 MG/ML VIAL IVP PRN ×2 (04:19→08:02)
[2019-08-04 05:42] LABS: BASOPHILS % (AUTO) 0.4 %; EOSINOPHILS # (AUTO) 0.3 10^3/uL (0.0-0.7); EOSINOPHILS % (AUTO) 2.8 %; HGB - HEMOGLOBIN 7.7 g/dL (12.0-16.0); LYMPHOCYTES # (AUTO) 1.9 10^3/uL (1.5-3.5); LYMPHOCYTES % (AUTO) 21.1 %; MEAN CORPUSCULAR HEMOGLOBIN 28.4 pg (27.0-31.0); MEAN CORPUSCULAR HGB CONC 31.8 g/dL (32.0-36.0); MEAN CORPUSCULAR VOLUME 89.3 fL (81.0-99.0); MONOCYTES # (AUTO) 0.9 10^3/uL (0.0-1.0); MONOCYTES % (AUTO) 9.8 %; NEUTROPHILS # (AUTO) 5.9 10^3/uL (1.5-6.6); NEUTROPHILS % (AUTO) 64.9 %; PLT - PLATELET COUNT 429 10^3/uL (130-450); RED BLOOD COUNT 2.71 10^6/uL (4.20-5.40); RED CELL DISTRIBUTION WIDTH 12.5 % (12.0-15.0); WHITE BLOOD COUNT 9.1 x10^3/uL (4.8-10.8)
[2019-08-04] MEDS: CEFEPIME 1 GM in SODIUM CHLORIDE 0.9% MINIBAG 100 ML IV SCH ×2 (05:48→15:49)
[2019-08-04 05:49] LABS: CALCIUM 8.6 mg/dL (8.5-10.3); CREATININE 1.1 mg/dL (0.4-1.0)
[2019-08-04] MEDS: INSULIN ASPART 300 UNIT/3 ML PEN SUBQ SCH ×3 (05:55→18:55)
[2019-08-04] MEDS ORDERED: LEVOTHYROXINE 75 MCG TABLET PO SCH (07:00)
[2019-08-04] MEDS ORDERED: LORazepam 2 MG/ML VIAL IVP PRN (08:08)
[2019-08-04] MEDS ORDERED: hydrALAZINE INJ 20 MG/ML VIAL IVP PRN (08:11)
[2019-08-04] MEDS ORDERED: METOPROLOL 5 MG/5 ML VIAL IVP PRN (08:15)
[2019-08-04] MEDS ORDERED: MAGNESIUM SULFATE 2 GRAM 2 GM/50 ML BAG IV ONE (08:30)
[2019-08-04] MEDS ORDERED: levETIRAcetam INJ 500 MG in SODIUM CHLORIDE 0.9% 100ML 100 ML IV SCH (09:00)
[2019-08-04] MEDS ORDERED: ASPIRIN 300 MG SUPP PR SCH (09:00)
[2019-08-04] MEDS ORDERED: SODIUM CHLORIDE 0.9% 1,000 ML IV ONE (09:17)
[2019-08-04] MEDS: SODIUM CHLORIDE 0.9% 1,000 ML IV SCH ×2 (09:21→13:18)
[2019-08-04] MEDS: ENOXAPARIN 40 MG/0.4 ML SYRINGE SUBQ SCH (09:25)
[2019-08-04] MEDS: SACCHAROMYCES BOULARDII 250 MG CAPSULE PO SCH (09:31)
[2019-08-04] MEDS: amLODIPine 5 MG TABLET PO SCH (09:31)
[2019-08-04] MEDS: lisinopriL 5 MG TABLET PO SCH (09:32)
[2019-08-04] MEDS ORDERED: SODIUM CHLORIDE FLUSH 0.9% 10 ML SYRINGE IVP PRN (10:06)
--- NOTE | 2019-08-04 10:16 | PROVIDER PROGRESS NOTE ---
Assessment/Plan - Problem List (1) Status epilepticus Assessment/Plan: She was given iv Benzos for treating about 3 recurrent partial seizures of the L arm and twitching of the face, which occurred last night and this a.m. All po meds stopped, changed to iv forms. Pt moved to ICU. I spoke to the grad-daughter, at patient's bedside. The METALLURGY TEACHER who was her Provider, called [facility], to have her transferred back to [facility], since she was just discharged from there 4 days ago (was home 2 days). That Neurologist advised the addition of Dilantin, continue Keppra, stop Ativan because it can cause respiratory suppression needing intubation. He said that they can be contacted tomorrow if she is not better and still has seizures with this management. Dilantin loading dose iv today, the daily dose tomorrow. Keppra dose was changed to iv. Neuro checks and safety restraints in ICU, npo while sedated. Later the patient had 3 episodes of facial twitching then left arm tonic-clonic movement then generalized seizures and with the third 1 tongue biting and bleeding occurred. She would not tolerate an airway. I called and spoke to the same neurologist, Dr. Colmenares who stated that with generalized seizures she needs Ativan IV drip, intubation and does indeed need transfer to a facility with higher level of care. There are no beds open at [facility]. We will work on getting her transferred to a facility with higher level of care. (2) Left hemiplegia Assessment/Plan: A brain MRI was ordered for today. Not done yet but she became critically ill with status epilepticus. Echo done for a source of embolus is pending (3) HTN (hypertension) Assessment/Plan: Her p.o. meds will be stopped. IV meds to substitute. (4) HCAP (healthcare-associated pneumonia) Assessment/Plan: The patient spiked a fever last night and she has been started on empiric cefepime and Vanco. Await cultures to focus treatment (5) Subdural hematoma Assessment/Plan: She needed a craniotomy for subdural hematoma evacuation. It does not appear she was sent home on empiric antiepileptic meds. (6) Hx of fall Assessment/Plan: A GLF caused the head bleed. (7) DM2 (diabetes mellitus, type 2) Assessment/Plan: Change to non-eating ss Insulin coverage. - Current Meds Current Meds: Current Medications Generic Name Dose Route Start Last Admin Trade Name Freq PRN Reason Stop Dose Admin Aspirin 81 mg 08/04/19 09:00 08/04/19 09:56 ME 81 mg DAILY MARLEEN Administration Enoxaparin Sodium 40 mg 08/03/19 09:00 08/04/19 09:25 Lovenox SUBQ 40 mg DAILY MARLEEN Administration Cefepime HCl 1 gm/ Sodium 100 mls @ 200 mls/hr 08/03/19 17:00 08/04/19 06:23 Chloride IV Infused TID MARLEEN Infusion Vancomycin HCl 0.75 gm/ Sodium 250 mls @ 250 mls/hr 08/03/19 18:00 08/03/19 21:34 Chloride IV Infused Q18H MARLEEN Infusion Levetiracetam 500 mg/ Sodium 105 mls @ 400 mls/hr 08/04/19 09:00 08/04/19 09:54 Chloride IV Infused BID MARLEEN Infusion Insulin Aspart 1 - 9 unit 08/04/19 06:00 08/04/19 05:55 Novolog SUBQ 1 unit Q6H MARLEEN Administration Protocol Sodium Chloride 10 ml 08/02/19 16:15 08/02/19 18:34 Normal Saline Flush 0.9% IVP 10 ml PRN PRN Administration NEEDED PER PROVIDER ORDERS Sodium Chloride 10 ml 08/02/19 17:00 08/04/19 09:26 Normal Saline Flush 0.9% IVP 10 ml 0100,0900,1700 MARLEEN Administration - Lab Result Fish Bone Diagrams: 08/04/19 05:20 08/04/19 05:20 - Additional Planning My Orders: My Active Orders 08/04/19 10:04 Transfer [Admit \ Transfer \ Status] [RC] .ONCE 08/04/19 10:06 Daily Weight [RC] 0600 IO [RC] Q1HR Initiate Flu Vaccine Screening [RC] ONCE Initiate ICU Electrolyte Prot. [RC] .protocol Initiate Line Care Protocol [RC] .protocol Initiate Personal Care Protoco [RC] .protocol Initiate Pneumonia Vaccine Scr [RC] ONCE Vital Signs [RC] Q30MX2,Q2HX2,Q4HX2,QSHIFT MRSA PCR,CCU ADMIT Routine Sodium Chloride Flush 0.9% [Normal Saline Flush 0.9%] 10 ml IVP PRN PRN Code Status [OTHERS] Routine 08/04/19 10:07 Blood Glucose POC [] Routine Telemetry- [] Q4HR Turn, Cough and Deep Breathe [RC] Routine 08/04/19 10:08 Oral Care - Nursing [] Routine Turn and Reposition [RC] Routine 08/04/19 10:12 Blood Glucose POC [] 0000,0600,1200,1800 08/04/19 11:00 D5ns W/20 Meq KCl 1,000 ml IV 60 mls/hr Famotidine [Pepcid] 20 mg IVP BID 08/04/19 17:00 Sodium Chloride Flush 0.9% [Normal Saline Flush 0.9%] 10 ml IVP 0100,0900,1700 Subjective - Subjective Patient Reports: Other (Sedated and sleeping after Ativan dosing for status epilepticus.) Objective Vital Signs: Vital Signs - 24 hr 08/03/19 08/03/19 08/03/19 10:40 10:44 11:40 Temperature 37.6 C H Heart Rate [ 81 81 Activity] Heart Rate [ 95 Brachial] Heart Rate [ 73 73 Supine] Respiratory 18 Rate Blood Pressure 139/60 H 139/60 H [Activity] Blood Pressure 156/62 H [Left Brachial artery] Blood Pressure [Right Brachial artery] Blood Pressure 143/53 H 143/53 H [Supine] O2 Saturation 93 O2 Saturation [ 98 Activity] O2 Saturation [ 98 Supine] 08/03/19 08/03/19 08/03/19 16:02 20:01 21:15 Temperature 38.0 C H 37.6 C H Heart Rate [ Activity] Heart Rate [ 87 85 81 Brachial] Heart Rate [ Supine] Respiratory 16 16 Rate Blood Pressure [Activity] Blood Pressure 139/54 H 153/59 H [Left Brachial artery] Blood Pressure 133/40 H [Right Brachial artery] Blood Pressure [Supine] O2 Saturation 96 98 100 O2 Saturation [ Activity] O2 Saturation [ Supine] 08/03/19 08/03/19 08/03/19 21:30 21:45 22:00 Temperature Heart Rate [ Activity] Heart Rate [ 76 72 75 Brachial] Heart Rate [ Supine] Respiratory Rate Blood Pressure [Activity] Blood Pressure [Left Brachial artery] Blood Pressure 151/52 H 148/52 H 153/65 H [Right Brachial artery] Blood Pressure [Supine] O2 Saturation 99 97 98 O2 Saturation [ Activity] O2 Saturation [ Supine] 08/03/19 08/04/19 08/04/19 22:30 01:00 02:30 Temperature 37.6 C H Heart Rate [ Activity] Heart Rate [ 75 86 75 Brachial] Heart Rate [ Supine] Respiratory 20 18 19 Rate Blood Pressure [Activity] Blood Pressure 160/55 H 156/63 H [Left Brachial artery] Blood Pressure [Right Brachial artery] Blood Pressure [Supine] O2 Saturation 98 100 100 O2 Saturation [ Activity] O2 Saturation [ Supine] 08/04/19 08/04/19 03:11 07:55 Temperature 37.7 C H 36.5 C Heart Rate [ Activity] Heart Rate [ 82 84 Brachial] Heart Rate [ Supine] Respiratory 18 18 Rate Blood Pressure [Activity] Blood Pressure 166/59 H 169/84 H [Left Brachial artery] Blood Pressure [Right Brachial artery] Blood Pressure [Supine] O2 Saturation 100 100 O2 Saturation [ Activity] O2 Saturation [ Supine] Oxygen O2 Source Nasal cannula Oxygen Flow Rate 2 I&O (Last 24 Hrs): Intake and Output Totals x24h 08/02/19 08/03/19 08/04/19 23:59 23:59 23:59 Intake Total 120 2445.5 1205 Output Total 1800 1950 450 Balance -1680 495.5 755 General: Other (Sedated) Neuro: Other (Sedated (after Ativan iv doses), but had 1 episode of muscle twitching of L face witnessed.) Cardiovascular: Regular rate Respiratory: No respiratory distress (But she is sedated and is snoring), Breath sounds nml Extremities: No edema - Results Results: Laboratory Results WBC 9.1 x10^3/uL (4.8-10.8) 08/04/19 05:20 RBC 2.71 10^6/uL (4.20-5.40) L 08/04/19 05:20 Hgb 7.7 g/dL (12.0-16.0) L 08/04/19 05:20 Hct 24.2 % (37.0-47.0) L 08/04/19 05:20 MCV 89.3 fL (81.0-99.0) 08/04/19 05:20 MCH 28.4 pg (27.0-31.0) 08/04/19 05:20 MCHC 31.8 g/dL (32.0-36.0) L 08/04/19 05:20 RDW 12.5 % (12.0-15.0) 08/04/19 05:20 Plt Count 429 10^3/uL (130-450) 08/04/19 05:20 MPV 10.0 fL (7.9-10.8) 08/04/19 05:20 Reticulocyte % (Auto) 3.77 % (0.5-2.3) H 08/03/19 05:40 Neut # (Auto) 5.9 10^3/uL (1.5-6.6) 08/04/19 05:20 Lymph # (Auto) 1.9 10^3/uL (1.5-3.5) 08/04/19 05:20 [place] # (Auto) 0.9 10^3/uL (0.0-1.0) 08/04/19 05:20 Eos # (Auto) 0.3 10^3/uL (0.0-0.7) 08/04/19 05:20 Baso # (Auto) 0.0 10^3/uL (0.0-0.1) 08/04/19 05:20 Absolute Nucleated RBC 0.00 x10^3/uL 08/04/19 05:20 Nucleated RBC % 0.0 /100WBC 08/04/19 05:20 Absolute Retic 0.106 10^6/uL (0.020-0.110) 08/03/19 05:40 PT 11.5 secs (9.9-12.6) 08/02/19 14:12 INR 1.0 (0.8-1.2) 08/02/19 14:12 APTT 26.5 secs (24.9-33.3) 08/02/19 14:12 Sodium 138 mmol/L (135-145) 08/04/19 05:20 Potassium 3.8 mmol/L (3.5-5.0) 08/04/19 05:20 Chloride 106 mmol/L (101-111) 08/04/19 05:20 Carbon Dioxide 24 mmol/L (21-32) 08/04/19 05:20 Anion Gap 8.0 (6-13) 08/04/19 05:20 BUN 11 mg/dL (6-20) 08/04/19 05:20 Creatinine 1.1 mg/dL (0.4-1.0) H 08/04/19 05:20 Estimated GFR (MDRD) 48 (>89) L 08/04/19 05:20 Glucose 161 mg/dL (70-100) H 08/04/19 05:20 Glycated Hemoglobin 7.4 % (4.6-6.2) H 08/02/19 14:12 Estim Average Glucose 166 (70-100) H 08/02/19 14:12 Calcium 8.6 mg/dL (8.5-10.3) 08/04/19 05:20 Magnesium 1.6 mg/dL (1.7-2.8) L 08/03/19 05:40 Iron 33 ug/dL (28-170) 08/03/19 05:40 TIBC 295 ug/dL (250-450) 08/03/19 05:40 % Saturation 11 % (20-50) L 08/03/19 05:40 Transferrin 211 mg/dL (192-382) 08/03/19 05:40 Ferritin 42.5 ng/mL (11.0-306.8) 08/03/19 05:40 Total Bilirubin 0.6 mg/dL (0.2-1.0) 08/02/19 14:12 AST 18 IU/L (10-42) 08/02/19 14:12 ALT 20 IU/L (10-60) 08/02/19 14:12 Alkaline Phosphatase 53 IU/L (42-121) 08/02/19 14:12 Lactate Dehydrogenase 120 IU/L (91-225) 08/03/19 05:40 Total Protein 6.5 g/dL (6.7-8.2) L 08/02/19 14:12 Albumin 3.6 g/dL (3.2-5.5) 08/02/19 14:12 Globulin 2.9 g/dL (2.1-4.2) 08/02/19 14:12 Albumin/Globulin Ratio 1.2 (1.0-2.2) 08/02/19 14:12 Triglycerides 192 mg/dL (-149) H 08/03/19 05:40 Cholesterol 130 mg/dL (-199) 08/03/19 05:40 LDL Cholesterol, Calc 59 mg/dL (-129) 08/03/19 05:40 VLDL Cholesterol 38 mg/dL 08/03/19 05:40 HDL Cholesterol 33 mg/dL (60-) L 08/03/19 05:40 LDL/HDL Ratio 1.8 (<4.4) 08/03/19 05:40 Cholesterol/HDL Ratio 3.9 (<4.4) 08/03/19 05:40 Lipase 33 U/L (22-51) 08/02/19 14:12 Vitamin B12 84 pg/mL (180-914) L 08/03/19 05:40 TSH 0.25 uIU/mL (0.34-5.60) L 08/03/19 05:40 Urine Color YELLOW 08/03/19 09:54 Urine Clarity CLEAR (CLEAR) 08/03/19 09:54 Urine pH 6.0 PH (5.0-7.5) 08/03/19 09:54 Ur Specific [place] 1.020 (1.002-1.030) 08/03/19 09:54 Urine Protein NEGATIVE mg/dL (NEGATIVE) 08/03/19 09:54 Urine Glucose (UA) NEGATIVE mg/dL (NEGATIVE) 08/03/19 09:54 Urine Ketones TRACE mg/dL (NEGATIVE) 08/03/19 09:54 Urine Occult Blood TRACE-INTA (NEGATIVE) 08/03/19 09:54 Urine Nitrite NEGATIVE (NEGATIVE) 08/03/19 09:54 Urine Bilirubin NEGATIVE (NEGATIVE) 08/03/19 09:54 Urine Urobilinogen 0.2 (NORMAL) E.U./dL (NORMAL) 08/03/19 09:54 Ur Leukocyte Esterase TRACE (NEGATIVE) H 08/03/19 09:54 Urine RBC 0-5 /HPF (0-5) 08/03/19 09:54 Urine WBC 4-5 /HPF (0-5) 08/03/19 09:54 Ur Squamous Epith Cells FEW Squamous (<= Few) 08/03/19 09:54 Urine Bacteria None Seen /HPF (None Seen) 08/03/19 09:54 Urine Culture Comments INDICATED 08/03/19 09:54 Sepsis Event Note (H) - Evaluation Current Stage of Sepsis: Ruled out
--- NOTE | 2019-08-04 10:43 | PROVIDER PROGRESS NOTE ---
Hospitalist Cross-cover Note - Cross-Cover Note Cross-Cover Note: Dr. Fisher reported pt had multiple times of seizure, likely partial seizure on last night. today morning, nurse report pt had seizure again. pt did show about 20-30 second, mainly on left upper and lower extremities seizure activity. I called [facility] for high level of care. Dr. Huan La, neurologist, called me back. he state EEG is not help for this case. he recommend: continue Keppra, add second anti-seizure meds with 20mg/kg loading dosage of Dilantin once today, tomorrow give pt 300mg daily, to see how pt response. if pt's seizure is not controlled, call on tomorrow. Hold Ativan now.
[2019-08-04] MEDS ORDERED: SODIUM CHLORIDE 0.9% IV ONE (11:00)
[2019-08-04] MEDS ORDERED: FAMOTIDINE 20 MG/2 ML VIAL IVP SCH (11:00)
[2019-08-04] MEDS ORDERED: PHENYTOIN IV ONE (11:00)
[2019-08-04] MEDS ORDERED: D5NS W/20 MEQ KCL 1,000 ML IV SCH (11:00)
[2019-08-04] MEDS ORDERED: PHENYTOIN 100 MG/2 ML VIAL IVP SCH ×2 (12:00→13:00)
[2019-08-04] MEDS ORDERED: VANCOMYCIN INJ 0.75 GM in SODIUM CHLORIDE 0.9% 250 ML IV SCH (13:00)
[2019-08-04] MEDS ORDERED: PROPOFOL 200 MG/20 ML VIAL IVP ONE ×2 (16:49→17:23)
[2019-08-04] MEDS ORDERED: SUCCINYLCHOLINE 200 MG/10 ML VIAL ONE (16:50)
[2019-08-04] MEDS ORDERED: SODIUM CHLORIDE FLUSH 0.9% 10 ML SYRINGE IVP SCH (17:00)
[2019-08-04] MEDS ORDERED: LORazepam 100MG/100ML D5W 100 ML IV SCH (17:00)
--- NOTE | 2019-08-04 17:00 | ED Physician Documentation ---
ED Addendum - Addendum Addendum: 08/04/19 17:00 I was called to the ICU to intubate her, she was having status epilepticus. She was given 100 mg of propofol and 200 mg of succinylcholine after review of her labs which showed a normal potassium. She was intubated with a grade 2 view with a 7.5 cuffed tube at 22 at the lips. Equal breath sounds and end-tidal color change were good.
[2019-08-04] MEDS ORDERED: ROCURONIUM 50 MG/5 ML VIAL IVP ONE (17:21)
[2019-08-04] MEDS ORDERED: PROPOFOL 1000 MG/100 ML 100 ML IV SCH (18:00)
--- NOTE | 2019-08-04 18:05 | Discharge Plan ---
Discharge Plan Problem Reviewed?: Yes Disposition: 02 Transfer Acute Care Hosp Condition: Serious No Smoking: If you smoke, Please STOP! Call for help. Follow-up with: Provider,Other [Primary Care Provider] -
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
[2019-08-04 18:31] LABS: ABG BASE EXCESS -1.7 mmol/L (-2.0-3.0); ABG HCO3 22.8 mmol/L (22.0-26.0); ABG OXYGEN SATURATION 94 % (94-98); ABG PCO2 38 mmHg (34-45); ABG PO2 70 mmHg (80-100); ALLEN TEST POSITIVE
--- NOTE | 2019-08-04 18:36 | ANESTHESIA PROCEDURE NOTE ---
Diagnosis: Central line Iv access for antiseizure medication Procedure: TL RIJ central liner Height and Weight: Height 5 ft 2 in Weight (kg) 68 kg Body Mass Index 27.3 Vital Signs: Temp Pulse Resp BP Pulse Ox 36.6 C 101 H 16 135/50 H 100 08/04/19 13:50 08/04/19 17:36 08/04/19 14:00 08/04/19 14:00 08/04/19 14:00 Allergies No Known Drug Allergies Allergy (Verified 08/02/19 14:08) ASA classification: 4-Incapacitating disease Is this case an emergency?: Yes Anes. Monitoring and Equipment: Non-invasive BP, Pulse oximetery Procedure Notes: Central line requested by hospitalist. Order in and consent signed. At bedside at about 1732. Pt is intubated and on Ativan drip, but still appears to be over breathing the ventilator.Gave 3 cc of propofol and total 20 mg of Rocuronium to help her relax for the central line placement. Sterile prep used, skin cleaned with chlorohexdine. US used for central line placement. Modified seldinger technique used. No ectopy noticed while advancing the catheter. Vital signs were being monitor by the RN. Vital signs stayed stable with HR in low 100's Catheter 15cm at the skin. Catheter sutured in place and biogel disc placed over the catheter. Tegaderm placed over insertion site. Patient tolerated with proceedure well. X Ray Obtained. Will wait for radiology confirmation. Anesth Central Line Template - Central Line Central Line Preparation: Consent Obtained Central line location: Right IJ Central line type: Triple lumen Central line catheter tip site resides: Superior vena cava (SVC) Central line aftercare: Chlorhexidine disc placed, Secured, Placement confirmed, No pneumothorax, No complications, Bundle checklist complete, Pt tolerated well, Other (Waitig for radiology confirmation as well)
--- NOTE | 2019-08-04 18:51 | XRAY Report ---
Reason: Intubated Procedure Date: 08/04/2019 Accession Number: [id number] / [id number] Procedure: XR - Post ET Tube 1V CXR CPT Code: 56298 Final Report FULL RESULT: EXAM: CHEST RADIOGRAPHY EXAM DATE: 08/04/2019 05:37 PM. CLINICAL HISTORY: Intubated. COMPARISON: CHEST 1 VIEW 08/03/2019 8:31 AM. TECHNIQUE: 1 view. FINDINGS: Cardiac leads overlie the chest. The patient is rotated to the left. The endotracheal tube terminates at the travis. Heart size is unchanged. Lungs remain hypoexpanded. Patchy opacities in the lateral left lung base have mildly increased. Possible trace left pleural effusion. No pneumothorax visualized. IMPRESSION: Endotracheal tube terminating at the travis. Recommend withdrawing 2-3 cm. Mildly increased patchy opacities in the lateral left lung base. Possible trace left pleural effusion. RADIA
--- NOTE | 2019-08-04 19:18 | XRAY Report ---
Reason: verify line placement Procedure Date: 08/04/2019 Accession Number: [id number] / [id number] Procedure: XR - Chest for Line Placement CPT Code: Final Report FULL RESULT: EXAM: CHEST RADIOGRAPHY EXAM DATE: 08/04/2019 06:10 PM. CLINICAL HISTORY: Verify line placement. COMPARISON: CHEST 1 VIEW 08/04/2019 5:01 PM CHEST 1 VIEW 08/03/2019 8:31 AM. TECHNIQUE: 1 view. AP portable. Patient is partially rotated. FINDINGS: Lungs/Pleura: Lateral left basilar opacity. Mild pulmonary vascular congestion. No pneumothorax. Mediastinum: Atherosclerotic aortic calcification. Other: Endotracheal tube tip 3.9 cm above travis. Right IJ central line tip overlies middle third of SVC. IMPRESSION: 1. Lateral left basilar consolidation is better defined. 2. Mild pulmonary vascular congestion. 3. Right IJ central line tip overlies middle third of SVC. RADIA
[2019-08-04 19:48] VITALS: BP 151/68
[2019-08-05] MEDS ORDERED: PHENYTOIN 100 MG/2 ML VIAL IVP SCH (14:00)
== END 2019-08-04 19:56 | disposition short-term general hospital (02) | DRG 91 ==
LOC: ED 13:39 → MS2 16:15 → OBSVTOIN 08-03 09:22 → ICU 08-04 11:10
PROVIDERS: ADMIT Nurse Practitioner Gerontology; ATTEND Internal Medicine
PROC: 5A1935Z Respiratory Ventilation, Less than 24 Consecutive Hours (ICD-10-PCS; principal; 2019-08-04)
PROC: 0BH17EZ Insertion of Endotracheal Airway into Trachea, Via Natural or Artificial Opening (ICD-10-PCS; 2019-08-04)
PROC: 02HV33Z Insertion of Infusion Device into Superior Vena Cava, Percutaneous Approach (ICD-10-PCS; 2019-08-04)
DX: G83.84 Todd's paralysis (postepileptic) (principal); J18.9 Pneumonia, unspecified organism; G40.401 Other generalized epilepsy and epileptic syndromes, not intractable, with status epilepticus; S06.5X9D Traumatic subdural hemorrhage with loss of consciousness of unspecified duration, subsequent encounter; I10 Essential (primary) hypertension; E03.9 Hypothyroidism, unspecified; E11.9 Type 2 diabetes mellitus without complications; Z79.82 Long term (current) use of aspirin; E78.5 Hyperlipidemia, unspecified; Y95 Nosocomial condition; Z91.81 History of falling; Z78.1 Physical restraint status; Z87.891 Personal history of nicotine dependence; Z79.899 Other long term (current) drug therapy; Z79.84 Long term (current) use of oral hypoglycemic drugs
CPT/HCPCS: 36415; 36600; 70496; 70498; 71045; 80048; 80053; 80061; 81001; 82607; 82728; 82803; 83036; 83540; 83615; 83690; 83735; 84443; 84466; 85025; 85045; 85610; 85730; 87040; 87086; 87150; 93005; 93306; 97162; 97166; A9270; G0378; J0330; J1650; J1815; J2060; J3370; Q9967; 70450; 83721; 94770; 96361; 96365; 96375; 99285

== ENCOUNTER 2019-08-04 19:47 | Outpatient (CLI) | payer MEDICARE, OTHER | END 2019-08-04 23:59 | disposition short-term general hospital (02) | LOC: EMS 19:47 | PROVIDERS: ATTEND Surgery | DX: G40.901 Epilepsy, unspecified, not intractable, with status epilepticus (principal); G83.84 Todd's paralysis (postepileptic); G81.04 Flaccid hemiplegia affecting left nondominant side | CPT/HCPCS: A0425; A0426 ==